=== PATIENT | male | born 1955 | race Caucasian/White ===

== ENCOUNTER 2020-03-03 16:15 | Emergency (ER) | payer SELFPAY ==
[2020-03-03] MEDS ORDERED: Sodium Chloride 0.9% 1,000 ML IV SCH (16:45)
[2020-03-03 17:10] LABS: ACETAMINOPHEN < 2 ug/mL (<2)
--- NOTE | 2020-03-03 18:16 | EDM.PDOC ---
ED HPI GENERAL MEDICAL PROBLEM - General Stated Complaint: OD Time Seen by Provider: 03/03/20 16:15 Source of Information: Reports: Patient History Limitations: Reports: No Limitations - History of Present Illness INITIAL COMMENTS - FREE TEXT/NARRATIVE: Patient presented to the ED because of unresponsive episode. He apparently ingested a narcotic tablet given by a friend and then he became unresponsive with shallow breathing. When medics arrived at the scene he was given a dose of narcan and he refained his consciousness. He is AAO x3 upon his arrival in the ED with a GCS of a5. - Related Data Allergies Allergy/AdvReac Type Severity Reaction Status Date / Time No Known Allergies Allergy Verified 03/03/20 16:27 Home Meds: Home Meds NK [No Known Home Meds] 03/03/20 [History] ED ROS GENERAL - Review of Systems Review Of Systems: See Below Constitutional: Reports: No Symptoms HEENT: Reports: No Symptoms Respiratory: Reports: No Symptoms Cardiovascular: Reports: No Symptoms Endocrine: Reports: No Symptoms GI/Abdominal: Reports: No Symptoms : Reports: No Symptoms Musculoskeletal: Reports: No Symptoms Skin: Reports: No Symptoms Neurological: Reports: No Symptoms ED EXAM, GENERAL - Physical Exam Exam: See Below Exam Limited By: No Limitations General Appearance: Alert, No Apparent Distress Eye Exam: Bilateral Eye: PERRL Ears: Normal External Exam, Normal Canal, Hearing Grossly Normal Nose: Normal Inspection, Normal Mucosa, No Blood Throat/Mouth: Normal Inspection, Normal Lips, Normal Teeth Head: Atraumatic, Normocephalic Neck: Normal Inspection, Supple, Non-Tender, Full Range of Motion Respiratory/Chest: No Respiratory Distress, Lungs Clear, Normal Breath Sounds Cardiovascular: Normal Peripheral Pulses, Regular Rate, Rhythm, No Edema, No Gallop GI/Abdominal: Normal Bowel Sounds, Soft, Non-Tender, No Organomegaly Back Exam: Normal Inspection, Full Range of Motion Extremities: Normal Inspection, Normal Range of Motion, Non-Tender Course - Vital Signs Text/Narrative:: Labs reviewed and discussed with patient and verbalized full understanding I did discussed with him CD placement but he refused and he told me that he doesn't have street [place] problem because people used it during the WW2. Last Recorded V/S: Last Vital Signs Temp 37.1 C 03/03/20 16:15 Pulse 74 03/03/20 16:15 Resp 18 03/03/20 16:15 BP 145/89 H 03/03/20 16:15 Pulse Ox 93 L 03/03/20 16:15 - Orders/Labs/Meds Orders: Active Orders 24 hr Category Date Time Status THYROXINE (T4) FREE, DIRECT, S Stat Lab 03/03/20 16:43 Received Labs: Laboratory Tests 03/03/20 03/03/20 03/03/20 Range/Units 16:43 16:43 16:43 WBC 11.6 (4.5-12.0) X10-3/uL RBC 4.94 (4.30-5.75) x10(6)uL Hgb 14.5 (13.5-17.8) g/dL Hct 43.7 (30.0-51.3) % MCV 88.4 (80-96) fL MCH 29.4 (27.7-33.6) pg MCHC 33.3 (32.2-35.4) g/dL RDW 13.4 (11.5-15.5) % Plt Count 258 (125-369) X10(3)uL MPV 7.9 (7.4-10.4) fL Neut % (Auto) 80.3 (46-82) % Lymph % (Auto) 8.5 L (13-37) % [place] % (Auto) 6.1 (4-12) % Eos % (Auto) 2 (1.0-5.0) % Baso % (Auto) 3 H (0-2) % Neut # (Auto) 9.3 H (1.6-8.3) # Lymph # (Auto) 1.0 (0.6-5.0) # [place] # (Auto) 0.7 (0.0-1.3) # Eos # (Auto) 0.2 (0.0-0.8) # Baso # (Auto) 0.4 H (0.0-0.2) # Sodium 142 (135-145) mmol/L Potassium 3.8 (3.5-5.3) mmol/L Chloride 107 (100-110) mmol/L Carbon Dioxide 29 (21-32) mmol/L BUN 21 H (7-18) mg/dL Creatinine 1.0 (0.70-1.30) mg/dL Est Cr Clr Drug Dosing TNP Estimated GFR (MDRD) > 60 (>60) BUN/Creatinine Ratio 21.0 H (9-20) Glucose 119 H (80-116) mg/dL Calcium 8.3 L (8.6-10.2) mg/dL Total Bilirubin 0.3 (0.1-1.3) mg/dL AST 22 (5-25) IU/L ALT 34 (12-36) U/L Alkaline Phosphatase 65 (56-112) IU/L Troponin I (4.0-60.3) pg/mL Total Protein 7.0 (6.0-8.0) g/dL Albumin 3.5 (3.2-4.6) g/dL Globulin 3.5 g/dL Albumin/Globulin Ratio 1.0 TSH, Ultra Sensitive 7.14 H* (0.36-3.74) IU/mL Salicylates 0.6 L (<2.8) mg/dL Urine Opiates Screen (NEGATIVE) Ur Oxycodone Screen (NEGATIVE) Ur Propoxyphene Screen (NEGATIVE) Acetaminophen < 2 L (<2) ug/mL Ur Barbituates Screen (NEGATIVE) Ur Tricyclics Screen (NEGATIVE) Ur Phencyclidine Scrn (NEGATIVE) Ur Amphetamine Screen (NEGATIVE) Urine MDMA Screen (NEGATIVE) U Benzodiazepines Scrn (NEGATIVE) U Cocaine Metab Screen (NEGATIVE) U Marijuana (THC) Screen (NEGATIVE) Ethyl Alcohol < 0.03 (<0.03) % 03/03/20 03/03/20 Range/Units 16:43 17:20 WBC (4.5-12.0) X10-3/uL RBC (4.30-5.75) x10(6)uL Hgb (13.5-17.8) g/dL Hct (30.0-51.3) % MCV (80-96) fL MCH (27.7-33.6) pg MCHC (32.2-35.4) g/dL RDW (11.5-15.5) % Plt Count (125-369) X10(3)uL MPV (7.4-10.4) fL Neut % (Auto) (46-82) % Lymph % (Auto) (13-37) % [place] % (Auto) (4-12) % Eos % (Auto) (1.0-5.0) % Baso % (Auto) (0-2) % Neut # (Auto) (1.6-8.3) # Lymph # (Auto) (0.6-5.0) # [place] # (Auto) (0.0-1.3) # Eos # (Auto) (0.0-0.8) # Baso # (Auto) (0.0-0.2) # Sodium (135-145) mmol/L Potassium (3.5-5.3) mmol/L Chloride (100-110) mmol/L Carbon Dioxide (21-32) mmol/L BUN (7-18) mg/dL Creatinine (0.70-1.30) mg/dL Est Cr Clr Drug Dosing Estimated GFR (MDRD) (>60) BUN/Creatinine Ratio (9-20) Glucose (80-116) mg/dL Calcium (8.6-10.2) mg/dL Total Bilirubin (0.1-1.3) mg/dL AST (5-25) IU/L ALT (12-36) U/L Alkaline Phosphatase (56-112) IU/L Troponin I 28.7 (4.0-60.3) pg/mL Total Protein (6.0-8.0) g/dL Albumin (3.2-4.6) g/dL Globulin g/dL Albumin/Globulin Ratio TSH, Ultra Sensitive (0.36-3.74) IU/mL Salicylates (<2.8) mg/dL Urine Opiates Screen Negative (NEGATIVE) Ur Oxycodone Screen Negative (NEGATIVE) Ur Propoxyphene Screen Negative (NEGATIVE) Acetaminophen (<2) ug/mL Ur Barbituates Screen Negative (NEGATIVE) Ur Tricyclics Screen Negative (NEGATIVE) Ur Phencyclidine Scrn Negative (NEGATIVE) Ur Amphetamine Screen Positive H (NEGATIVE) Urine MDMA Screen Positive H (NEGATIVE) U Benzodiazepines Scrn Negative (NEGATIVE) U Cocaine Metab Screen Negative (NEGATIVE) U Marijuana (THC) Screen Positive H (NEGATIVE) Ethyl Alcohol (<0.03) % Meds: Medications Discontinued Medications Generic Name Dose Route Start Last Admin Trade Name Freq PRN Reason Stop Dose Admin Sodium Chloride 1,000 mls @ 999 mls/hr 03/03/20 16:45 Normal Saline IV ASDIRECTED ELDER Departure - Departure Time of Disposition: 18:30 Disposition: Home, Self-Care 01 Condition: Good Clinical Impression: Polysubstance abuse - Discharge Information Instructions: Substance Use Disorder Referrals: PCP,None [Primary Care Provider] - Forms: ED Department Discharge Additional Instructions: Please read discharge instructions on polysubstance abuse Follow up with your doctor so you can have a chemical dependency treatment Sepsis Event Note - Focused Exam Date Exam was Performed: 03/04/20 Time Exam was Performed: 07:23 - My Orders Last 24 Hours: My Active Orders 03/03/20 16:43 THYROXINE (T4) FREE, DIRECT, S Stat - Assessment/Plan Last 24 Hours: My Active Orders 03/03/20 16:43 THYROXINE (T4) FREE, DIRECT, S Stat
== END 2020-03-03 18:40 | disposition home or self-care (01) ==
LOC: FB.ED 16:15
DX: F19.10 Other psychoactive substance abuse, uncomplicated (principal)
CPT/HCPCS: 36415; 80053; 80305-QW; 80307; 84439; 84443; 84484; 85025; 93005; 99283; 99284